=== PATIENT | female | born 1950 | race Caucasian/White ===

== ENCOUNTER → 2017-05-18 | Outpatient (CLI) | payer MEDICARE | LOC: COL.RAD 11:08 | DX: M16.11 Unilateral primary osteoarthritis, right hip (principal) | CPT/HCPCS: J3301; Q9967 ==

== ENCOUNTER → 2018-02-05 | Outpatient (CLI) | payer MEDICARE | LOC: COL.LAB 10:57 | DX: Z01.812 Encounter for preprocedural laboratory examination (principal) ==